=== PATIENT | male | born 1940 | race Caucasian/White ===

== ENCOUNTER 2020-08-11 13:44 | Inpatient (IN) | payer MEDICARE, BC ==
[~2020-08-11] VITALS: Ht 177.8 cm; Wt 68.0 kg
[2020-08-11] MEDS ORDERED: LORAZEPAM 2 MG/1 ML VIAL ONE (14:05)
[2020-08-11] MEDS ORDERED: LORAZEPAM 2 MG/1 ML VIAL IM ONE (14:15)
--- NOTE | 2020-08-11 14:18 | NUR ---
No informaion about current home medications found in transfer paperwork, pt unable to provide information.
--- NOTE | 2020-08-11 14:20 | NUR ---
PT IS IN ROOM #2B. DR GEORGE EVALUATED THE PT.
[2020-08-11 15:09] LABS: BASOPHILS # (AUTO) 0.1 K/uL (0.0-8.0); BASOPHILS % (AUTO) 1.2 % (0.0-2.0); EOSINOPHILS # (AUTO) 0.3 K/uL (0.0-0.7); EOSINOPHILS % (AUTO) 4.1 % (0.0-7.0); HEMATOCRIT 38.5 % (36.7-47.1); LYMPHOCYTES # (AUTO) 1.6 K/uL (20.0-40.0); LYMPHOCYTES % (AUTO) 24.7 % (20.5-51.5); MEAN CORPUSCULAR HGB CONC 34 g/dL (32.5-36.3); MEAN CORPUSCULAR VOLUME 94.9 fL (73.0-96.2); MONOCYTES # (AUTO) 0.8 K/uL (2.0-10.0); MONOCYTES % (AUTO) 13.1 % (0.0-11.0); NEUTROPHILS # (AUTO) 3.7 K/uL (1.8-8.9); NEUTROPHILS % (AUTO) 56.9 % (38.5-71.5); PLATELET COUNT (AUTO) 172 K/uL (152-348); RED BLOOD CELL COUNT(AUTO) 4.05 MIL/uL (4.06-5.63); WHITE BLOOD COUNT (AUTO) 6.4 K/uL (3.6-10.2)
[2020-08-11 15:16] LABS: CARBON DIOXIDE 24 mmol/L (21-32); CHLORIDE 109 mmol/L (98-107); CREATININE 1.6 mg/dL (0.6-1.3); GLUCOSE 95 mg/dL (74-106); POTASSIUM 4.2 mmol/L (3.5-5.1); UREA NITROGEN, BLOOD 32 mg/dL (7-18)
[2020-08-11 15:23] LABS: BILIRUBIN,DIRECT 0.2 mg/dL (0.0-0.2); BILIRUBIN,TOTAL 0.8 mg/dL (0.2-1.0)
[2020-08-11 15:24] LABS: ALANINE AMINOTRANSFERASE 29 U/L (16-63); ALKALINE PHOSPHATASE 83 U/L (50-136); ASPARTATE AMINOTRANSFERASE 40 U/L (15-37); TOTAL PROTEIN, SERUM 7.8 g/dL (6.4-8.2)
[2020-08-11] MEDS ORDERED: IV NS 1000 ML 1,000 ML IV ONE (15:45)
[2020-08-11 15:46] LABS: THYROID STIMULATING HORMONE 3.876 mIU/mL (0.358-3.740)
[2020-08-11] MEDS ORDERED: ACETAMINOPHEN 325 MG TABLET PO PRN (16:30)
[2020-08-11] MEDS ORDERED: Z GUARD REMEDY PASTE 57 GM TUBE TOP PRN (16:30)
[2020-08-11] MEDS ORDERED: ONDANSETRON 4 MG/2 ML VIAL IV PRN (16:30)
[2020-08-11] MEDS ORDERED: MAGNESIUM HYDROXIDE 30 ML LIQUID UDC PO PRN (16:30)
--- NOTE | 2020-08-11 18:11 | NUR ---
REPORT WAS GIVEN TO SENIOR CIVIL ENGINEER. PT WAS TRANSFERED TO ROOM #306.
--- NOTE | 2020-08-11 18:15 | NUR ---
received from ER per harshal asleep but moves all extremities and opens eyes slightly when transferred to bed, placed on 2l/nc 02, tele applied-SR/SB 54-61, sutures noted on forehead- clean and dry, bruises noted on both arms with a dsg on his left forearm, also bruises on lower extremities and a bruise on his left hip, safety measures initiated, bed alarm on, remains asleep, vs stable
[2020-08-11] MEDS: IV NS 1000 ML 1,000 ML IV SCH (18:16)
[2020-08-11 18:30] VITALS: BP 126/52
--- NOTE | 2020-08-11 19:05 | NUR ---
Patient sleeping comfortably with HOB elevated with continuos O2 at 2L/ min via NC saturating 100%. No s/s of respiratory distress. Sitter at bedside. IVF infusing on ADDY G# 20, patent/intact, no s/s of infiltration. Made warm and comfortable. Safety measure and fall prevention maintained. Admission process will continue.
[2020-08-11 20:00] VITALS: BP 149/75
--- NOTE | 2020-08-11 20:03 | NUR ---
Spoke to patient's , Sabine just now, she said that the patient has advance directives at home and willing to provide us copies anytime. She said that the patient is DNR. Daughter will bring/provide us copies in AM. Will endorse to Am nurse tomorrow,
[2020-08-12 00:13] VITALS: BP 145/66
--- NOTE | 2020-08-12 01:30 | NUR ---
Patient noted to have difficulty in swallowing. Patient was coughing when given apple sauce with crushed Tylenol . Placed patient to high Fowlers position to avoid aspiration. Will endorse to oncoming nurse.
[2020-08-12] MEDS: IV NS 1000 ML 1,000 ML IV SCH ×3 (02:44→22:05)
[2020-08-12 04:59] VITALS: BP 133/67
[2020-08-12 07:37] VITALS: BP 144/72
[2020-08-12 07:51] LABS: BASOPHILS # (AUTO) 0.1 K/uL (0.0-8.0); EOSINOPHILS # (AUTO) 0.3 K/uL (0.0-0.7); EOSINOPHILS % (AUTO) 3.8 % (0.0-7.0); HEMATOCRIT 35.9 % (36.7-47.1); LYMPHOCYTES # (AUTO) 1.8 K/uL (20.0-40.0); LYMPHOCYTES % (AUTO) 24.9 % (20.5-51.5); MEAN CORPUSCULAR HGB CONC 33 g/dL (32.5-36.3); MEAN CORPUSCULAR VOLUME 95.7 fL (73.0-96.2); MONOCYTES % (AUTO) 13.3 % (0.0-11.0); NEUTROPHILS # (AUTO) 4.2 K/uL (1.8-8.9); PLATELET COUNT (AUTO) 164 K/uL (152-348); RED BLOOD CELL COUNT(AUTO) 3.75 MIL/uL (4.06-5.63); WHITE BLOOD COUNT (AUTO) 7.4 K/uL (3.6-10.2)
[2020-08-12 08:25] LABS: CARBON DIOXIDE 17 mmol/L (21-32); CHLORIDE 113 mmol/L (98-107); CHOLESTEROL 165 mg/dL (<200); CREATININE 1.6 mg/dL (0.6-1.3); GLUCOSE 77 mg/dL (74-106); HDL CHOLESTEROL 53 mg/dL (40-60); MAGNESIUM 2.1 mg/dL (1.8-2.4); PHOSPHOROUS 3.1 mg/dL (2.5-4.9); POTASSIUM 4.4 mmol/L (3.5-5.1); TRIGLYCERIDES 78 MG/DL (30-150); UREA NITROGEN, BLOOD 32 mg/dL (7-18)
--- NOTE | 2020-08-12 09:45 | NUR ---
Pt received, confused, unable to verbally respond appropriately. No acute distress, no pain or SOB. Pt seen by MD, titration from 2L NC to 1.5L initiated O2 sat 96%. Breakfast held until wallow evaluation completed. PT evaluation determined max-total 2 person assist, from sit to standing. Pt's eyes remained closed the entire time, Pt unable to take single step forward. Right upper arm IV running NS 100ml/hr. 1:1 sitter present for being combative and aggressive at times. All needs attended to at this time. Will continue to monitor for safety.
[2020-08-12 11:45] VITALS: BP 139/67
[2020-08-12] MEDS: QUETIAPINE FUMARATE 25 MG TABLET PO PRN ×2 (13:17→20:22)
[2020-08-12 15:49] VITALS: BP 144/60
--- NOTE | 2020-08-12 19:00 | NUR ---
Pt received from AM nurse. No signs of distress or pain, no SOB. Patient is somewhat restless and mumbling to himself. Normal behavior according to AM nurse. Head to toe assessment completed, no abnormal findings relative to this patient. Will continue to monitor and assess.
--- NOTE | 2020-08-12 20:22 | NUR ---
Pt was feeling agitated. PRN Seroquel was administered. Will assess response and monitor.
--- NOTE | 2020-08-12 20:52 | NUR ---
Pt is asleep and calm. VSS. Seroquel has had a positive affect. No changes in VS or with HR. Will continue to monitor.
--- NOTE | 2020-08-13 00:25 | NUR ---
Assessed patient, resting in bed. VSS, no distress, afebrile, no reports of pain, no distress. Call light within reach, bed at lowest position, assessed IV site/checked IV pump. Will continue to monitor and assess.
--- NOTE | 2020-08-13 02:09 | NUR ---
No distress, no pain, VSS, afebrile, O2 @ 2L via Nasal Canula, call light within reach, bed at lowest position, sitter at bedside. Will continue to monitor and assess.
--- NOTE | 2020-08-13 05:11 | NUR ---
Upon assessment patient is sleeping comfortably, as he has been through the entire night. Agitation in the early parts of my shift were treated with PRN Seroquel and had positive effects on patient. No pain, VSS, afebrile, call light within reach, bed at lowest position, no distress, sitter at bedside. Will endorse to oncoming AM nurse.
[2020-08-13] MEDS: QUETIAPINE FUMARATE 25 MG TABLET PO PRN ×4 (05:15→17:52)
[2020-08-13 07:12] LABS: BASOPHILS % (AUTO) 0.6 % (0.0-2.0); EOSINOPHILS # (AUTO) 0.4 K/uL (0.0-0.7); EOSINOPHILS % (AUTO) 6.1 % (0.0-7.0); HEMATOCRIT 34.7 % (36.7-47.1); HEMOGLOBIN 11.8 g/dL (12.5-16.3); LYMPHOCYTES # (AUTO) 1.5 K/uL (20.0-40.0); LYMPHOCYTES % (AUTO) 22.6 % (20.5-51.5); MEAN CORPUSCULAR HEMOGLOBIN 32.2 uug (23.8-33.4); MEAN CORPUSCULAR HGB CONC 34 g/dL (32.5-36.3); MEAN CORPUSCULAR VOLUME 94.7 fL (73.0-96.2); MONOCYTES # (AUTO) 0.9 K/uL (2.0-10.0); NEUTROPHILS # (AUTO) 3.9 K/uL (1.8-8.9); NEUTROPHILS % (AUTO) 57.7 % (38.5-71.5); PLATELET COUNT (AUTO) 148 K/uL (152-348); RED BLOOD CELL COUNT(AUTO) 3.66 MIL/uL (4.06-5.63); WHITE BLOOD COUNT (AUTO) 6.7 K/uL (3.6-10.2)
[2020-08-13 07:17] LABS: CARBON DIOXIDE 21 mmol/L (21-32); CHLORIDE 112 mmol/L (98-107); CREATININE 1.4 mg/dL (0.6-1.3); GLUCOSE 92 mg/dL (74-106); UREA NITROGEN, BLOOD 20 mg/dL (7-18)
--- NOTE | 2020-08-13 07:30 | NUR ---
Received patient in bed resting in bed with 1:1 sitter for safety. On Oxygen at 1.5L via nasal canula, sat 94%. No signs of Pain or discomfort noted. IVF infusing on ADDY. kept clean and comfortable. Will continue to monitor.
[2020-08-13] MEDS: IV NS 1000 ML 1,000 ML IV SCH ×2 (08:10→18:30)
[2020-08-13] MEDS: ENOXAPARIN SODIUM 30 MG/0.3 ML DISP.SYRIN SUBCUT SCH (09:32)
[2020-08-13 16:00] VITALS: BP 130/61
[2020-08-13 16:19] LABS: *BILIRUBIN,URIN NEGATIVE (NEGATIVE); *BLOOD, URINE 3+ (NEGATIVE); *CLARITY,URINE SLIGHTLY CLOUDY (CLEAR); *COLOR,URINE YELLOW (YELLOW); *KETONES,URINE 1+ (NEGATIVE); LEUKOCYTE ESTERASE ,URINE NEGATIVE (NEGATIVE); NITRITE, URINE NEGATIVE (NEGATIVE); PH,URINE 5.5 (5.0-8.0); UGLUCOSE NEGATIVE (NEGATIVE)
[2020-08-13 16:25] LABS: *CREATININE,URINE 68.8 mg/dL (30-125); *URINE TOTAL PROTEIN RANDOM 26.6 mg/dL (<150/24HR)
[2020-08-13 18:38] LABS: BACTERIA,URINE FEW /HPF (NONE SEEN); RBC,URINE 50-80 /HPF (0-3); SQUAMOUS EPITHELIAL CELL,UR FEW /HPF (NONE SEEN); WBC,URINE 0-3 /HPF (0-3)
--- NOTE | 2020-08-13 19:45 | NUR ---
PATIENT AWAKE BUT WITH CONFUSION, NO SOB NO CHEST PAIN, TELE MONITOR SINUS RHYTHM. PATIENT HAS EPISODE OF AGITATION, COMBATIVE WHEN GIVING ADL'S, REDIRECT PATIENT BUT NOT EFFECTIVE, CONT TO REDIRECT AND HANDLE SKIN GENTLY, KEPT CLEAN DRY AND COMFORTABLE, CONT ON 1;1 SITTER FOR RISK FOR FALL, TRIES TO CLIMB OUT OF BED. CONT TO MONITOR.
[2020-08-13 20:00] VITALS: BP 158/88
[2020-08-13] MEDS: HYDROCODONE/APAP 5-325MG TABLET PO PRN (21:24)
--- NOTE | 2020-08-13 22:00 | NUR ---
PATIENT AWAKE WITH CONFUSION, COMBATIVE DURING ADL'S, AND RESTLESS, GIVEN PAIN MEDICATION FOR ANTICIPATED PAIN, KEPT CLEAN AND DRY. CONT TO MONITOR.
[2020-08-14 00:24] VITALS: BP 136/75
[2020-08-14] MEDS: QUETIAPINE FUMARATE 25 MG TABLET PO PRN ×3 (01:20→15:54)
[2020-08-14 04:30] VITALS: BP 144/72
[2020-08-14] MEDS: IV NS 1000 ML 1,000 ML IV SCH ×2 (04:30→14:26)
--- NOTE | 2020-08-14 06:22 | NUR ---
PATIENT ASLEEP BUT AROUSABLE, NO S/S OF SOB NO S/S OF CHEST PAIN, TELE MONITOR SINUS RHYTHM, SINUS ALLYSON, SLEPT FOR 5 HRS, TX DONE ON BILATERAL ARMS. PATIENT VOIDING WITH PALE COLOR RED NOTED IN MINIMAL AMOUNT, PATIENT HAS NO S/S OF PAIN AT THIS TIME. CONT TO MONITOR.
[2020-08-14 07:23] LABS: BASOPHILS % (AUTO) 0.6 % (0.0-2.0); EOSINOPHILS # (AUTO) 0.6 K/uL (0.0-0.7); EOSINOPHILS % (AUTO) 8.6 % (0.0-7.0); HEMATOCRIT 33.1 % (36.7-47.1); HEMOGLOBIN 11.1 g/dL (12.5-16.3); LYMPHOCYTES # (AUTO) 1.5 K/uL (20.0-40.0); MEAN CORPUSCULAR HEMOGLOBIN 31.8 uug (23.8-33.4); MEAN CORPUSCULAR HGB CONC 34 g/dL (32.5-36.3); MEAN CORPUSCULAR VOLUME 94.8 fL (73.0-96.2); MONOCYTES # (AUTO) 0.8 K/uL (2.0-10.0); MONOCYTES % (AUTO) 12.7 % (0.0-11.0); NEUTROPHILS # (AUTO) 3.7 K/uL (1.8-8.9); NEUTROPHILS % (AUTO) 55.1 % (38.5-71.5); PLATELET COUNT (AUTO) 146 K/uL (152-348); RED BLOOD CELL COUNT(AUTO) 3.49 MIL/uL (4.06-5.63); WHITE BLOOD COUNT (AUTO) 6.7 K/uL (3.6-10.2)
[2020-08-14 07:26] LABS: BILIRUBIN,TOTAL 0.5 mg/dL (0.2-1.0); CREATININE 1.2 mg/dL (0.6-1.3); MAGNESIUM 1.4 mg/dL (1.8-2.4); PHOSPHOROUS 2.5 mg/dL (2.5-4.9); POTASSIUM 3.8 mmol/L (3.5-5.1); TOTAL PROTEIN, SERUM 5.9 g/dL (6.4-8.2)
--- NOTE | 2020-08-14 08:30 | NUR ---
RECEIVED PATIENT ASLEEP IN BED, EASILY AROUSABLE. ORIENTED X 1, CONFUSED AND UNABLE TO FOLLOW COMMAND. SR ON MONITOR. ON 2L O2, SATURATION WNL. IV ON RIGHT UPPER ARM 22G, FLUSHED AND PATENT. INCONTINENT OF B/B. TOTAL ASSIST WITH ADLS. SAFETY PRECAUTIONS IN PLACE. 1:1 SITTER AT BEDSIDE FOR SAFETY. WILL CONTINUE TO MONITOR.
[2020-08-14] MEDS: ENOXAPARIN SODIUM 30 MG/0.3 ML DISP.SYRIN SUBCUT SCH (09:04)
[2020-08-14] MEDS: MAGNESIUM SULFATE/D5W 100 ML IV SCH ×4 (09:21→14:06)
[2020-08-14 11:20] VITALS: BP 92/45
--- NOTE | 2020-08-14 12:20 | NUR ---
spoke to Dr Duran and informed of Dr Canchola plan for crisis team consult- okayed and crisis team called and spoke to Renata- will come to see pt today
[2020-08-14 12:30] VITALS: BP 122/62
--- NOTE | 2020-08-14 17:20 | NUR ---
SEEN BY CHANDAN FROM CRISIS TEAM. PLACED PATIENT ON HOLD 5150. CALLED DR. BAUGH FOR CLARIFICATION IF PATIENT IS MEDICALLY CLEARED TO BE D/C FROM [facility]. DR BAUGH CLEARED PATIENT TO BE D/C TO [facility]. LEFT MESSAGE TO CLARIFY HOME MEDICATION WITH ERIC, .
--- NOTE | 2020-08-14 18:52 | NUR ---
PATIENT DISCHARGED FROM [facility] TO [facility]. CONFUSED AND COMBATIVE. UNABLE TO REDIRECT. 1:1 SITTER AT BEDSIDE FOR SAFETY. BILATERAL MITTENS IN PLACE. IV ON RIGHT FA 22G - HEPLOCK. NO CALL BACK FROM ERIC, . WILL ENDORSE HOME MEDICATION INQUIRY TO CYLINDER CHECKER. DISCHARGE PHOTOS TAKEN AND IN CHART. PATIENT REFUSED FLU AND PNEUMONIA VACCINE.
[2020-08-14] MEDS ORDERED: QUET25TA PO (18:53)
== END 2020-08-14 19:03 | DRG 682 ==
LOC: ER 13:44 → TELE3 17:02 → MEDSURG3 08-14 08:30
PROVIDERS: ADMIT Family Medicine; ATTEND Family Medicine
DX: N17.0 Acute kidney failure with tubular necrosis (principal); G92 Toxic encephalopathy; R40.2213 Coma scale, best verbal response, none, at hospital admission; I50.22 Chronic systolic (congestive) heart failure; F03.91 Unspecified dementia, unspecified severity, with behavioral disturbance; E03.9 Hypothyroidism, unspecified; E83.42 Hypomagnesemia; R74.01 Elevation of levels of liver transaminase levels; F29 Unspecified psychosis not due to a substance or known physiological condition; N18.9 Chronic kidney disease, unspecified; S09.90XA Unspecified injury of head, initial encounter; Y93.9 Activity, unspecified; W01.0XXA Fall on same level from slipping, tripping and stumbling without subsequent striking against object, initial encounter; Y92.009 Unspecified place in unspecified non-institutional (private) residence as the place of occurrence of the external cause; S40.022A Contusion of left upper arm, initial encounter; S40.021A Contusion of right upper arm, initial encounter; Z73.6 Limitation of activities due to disability; R40.2353 Coma scale, best motor response, localizes pain, at hospital admission; R40.2143 Coma scale, eyes open, spontaneous, at hospital admission
CPT/HCPCS: 36415; 70030-TC; 71045; 83735; 84100; 84156; 84300; 84443; 85025; 87086; 93005; 93307; A4663; C1758; G0378; J1650; J2060; J3475; J7030

== ENCOUNTER 2020-08-14 19:12 | Inpatient (IN) | payer MEDICARE, BC ==
[~2020-08-14] VITALS: Ht 177.8 cm; Wt 68.0 kg
[~2020-08-14 19:12] MED LIST: QUET25TA PO
--- NOTE | 2020-08-14 19:55 | NUR ---
Admitted patient from [facility] to [facility].Patient on 5150 with dx of psychosis. Patient is awake,confused ,uncooperative and combative. Trying to get out from the bed and noted with episodes of striking out .Bilateral mittens in place.Continue 1:1 sitter at bedside for safety. Patient noted with multiple skin issues.IV on right FA 22G heplock ,patent and intact.No s/s of infiltration.Received call from Patient's Sabine.Per ,patient doesn't have home medications. Will continue to monitor.
[2020-08-14] MEDS ORDERED: MAG HYDROX/AL HYDROX/SIMETH 30 ML LIQUID UDC PO PRN (20:00)
[2020-08-14] MEDS ORDERED: ZOLPIDEM 5 MG TABLET PO PRN (20:00)
[2020-08-14] MEDS ORDERED: ACETAMINOPHEN 325 MG TABLET PO PRN (20:00)
[2020-08-14] MEDS ORDERED: MAGNESIUM HYDROXIDE 30 ML LIQUID UDC PO PRN (20:00)
[2020-08-14 20:30] VITALS: BP 148/54
[2020-08-14] MEDS: LORAZEPAM 0.5 MG TABLET PO PRN (20:56)
--- NOTE | 2020-08-15 06:26 | NUR ---
Patient slept about 6 hrs.Combative during patient's care.Incontinent to both B &B .No BM at this time.Off mittens.All needs anticipated and met .
[2020-08-15 07:10] LABS: BILIRUBIN,TOTAL 0.5 mg/dL (0.2-1.0); CREATININE 1.2 mg/dL (0.6-1.3); POTASSIUM 4.6 mmol/L (3.5-5.1); TOTAL PROTEIN, SERUM 6.7 g/dL (6.4-8.2)
--- NOTE | 2020-08-15 08:00 | NUR ---
RECEIVED PATIENT AWAKE AND CONFUSED. NOTED SKIN TEARS AND BRUISES ON B/L UPPER EXTREMITIES. PHOTOS TAKEN AND IN CHART. 1:1 SITTER AT BEDSIDE FOR SAFETY. INCONTINENT OF B/B. ALL NEEDS MET AT THIS TIME. NO S/S OF SOB NOTED. WILL CONTINUE TO MONITOR.
[2020-08-15] MEDS: LORAZEPAM 0.5 MG TABLET PO PRN ×2 (08:29→14:48)
[2020-08-15] MEDS: OLANZAPINE 2.5 MG TABLET PO SCH ×2 (10:09→21:00)
[2020-08-15 11:00] VITALS: BP 167/58
--- NOTE | 2020-08-15 11:07 | NUR ---
FAMILY CONTACT: SW contacted pts Sabine ([phone]) for collateral information, treatment and discharge planning. Per , she states pt has been diagnosed with Dementia and states his behavior has gotten progressively worse. states pt has become very paranoid of others and often wanders at night and does not sleep. states that pt talks to himself and sees people that aren't there. Per , she states that pts behavior has gotten worse in the last 4 months due to construction work she is having around her house she states that the disturbance in pts routine and the different workers coming in and out of their home has affected pt. She states that pt became paranoid and fearful and believed the workers were going to hurt him and that is when pt walked out of the home and thus, prompting to call 911 and pt being placed on a 5150 hold. states that she is unable to care for pt at home anymore and states that she is looking into [facility] for placement. states that she is also open to SNF placement short-term if she is unable to figure out her finances by the time of pts discharge.
--- NOTE | 2020-08-15 11:29 | NUR ---
SUDHAKAR INITIAL DISCHARGE PLAN: Per Sabine ([phone]) she wishes for pt to be placed at [facility]. However, is open to SNF placement if she is unable to manage her finances. SUDHAKAR will help form a safe and proper discharge in collaboration with .
--- NOTE | 2020-08-15 12:21 | NUR ---
FIREARMS REPORT: Rake Operator completed and submitted a [employer] firearms report for 5150 grave disability certification. A copy of report has been placed in patient chart.
--- NOTE | 2020-08-15 15:00 | NUR ---
SUDHAKAR INDIVIDUAL INTERVENTION: SW assessed pts ability to participate in group therapy. Pt is unable to anticipate due to Dementia. Pt does not respond to verbal cues and is confused, disorganized, and disoriented.
--- NOTE | 2020-08-15 16:10 | NUR ---
MESSAGED DR. SOL TO LET HIM KNOW THAT PATIENT IS COMBATIVE AND RESTLESS. CLIMBING OUT OF BED. ORDERED ZYPREXA 5MG IM TO BE GIVEN NOW.
[2020-08-15] MEDS ORDERED: OLANZAPINE 10 MG VIAL IM ONE (16:15)
--- NOTE | 2020-08-15 17:21 | NUR ---
NOTIFIED SUSHMA FLORES THAT PATIENT bp 170/92, 166/98 WITH hr 65. PRN ORDERS FOR CLONIDINE 0.1MG TO BE GIVEN.
[2020-08-15] MEDS ORDERED: CLONIDINE HCL 0.1 MG TABLET PO PRN (17:30)
[2020-08-15 20:08] VITALS: BP 147/57
--- NOTE | 2020-08-15 21:00 | NUR ---
Patient in bed, alert to self. Does not have s/s of respiratory distress or pain. Sitter is at bedside. Bed is locked and in lowest position. Medications were crushed and tolerated well with pudding. Will continue to monitor.
[2020-08-15] MEDS: TRAZODONE 50 MG TABLET PO PRN (23:44)
--- NOTE | 2020-08-15 23:44 | NUR ---
Patient appeared restless. Was given Trazodone at 2344 to help aide in sleep. Patient tolerated medication well. Will continue to monitor.
[2020-08-16 04:00] VITALS: BP 151/61
--- NOTE | 2020-08-16 06:02 | NUR ---
Patient slept intermittently throughout the night. No s/s of respiratory distress, chest pain or any discomform at this time. Patient is on RA. Has a 1:1 at bedside. Patient is combative and swinging arms during diaper change. Bed is locked with alarm on and in the lowest position. Will endorse to day shift.
--- NOTE | 2020-08-16 06:16 | NUR ---
Patient slept 5 hours and 30 minutes throughout the night.
--- NOTE | 2020-08-16 07:30 | NUR ---
Received patient resting bed. Patient shows no sign of distress at this time. He is with 1:1 sitter. Patient is hostile and combative. Safety precautions are in place with bed in the lowest position, locked with alarm activated.
[2020-08-16] MEDS: OLANZAPINE 2.5 MG TABLET PO SCH ×3 (08:48→17:14)
[2020-08-16] MEDS: LORAZEPAM 0.5 MG TABLET PO PRN (09:12)
[2020-08-16 10:54] VITALS: BP 127/67
--- NOTE | 2020-08-16 13:32 | NUR ---
SUDHAKAR FAMILY CONTACT: SW received a call from pts Sabine ([phone]) requesting information on pts psychiatric hold and behavior. SW informed her that pt remains aggressive and combative when receiving care and also informed her that pt received a Zyprexa IM yesterday in the afternoon due to pts aggressive behavior. SW also informed that pt will be placed on a 14 day hold. understood and agrees with treatment plan.
[2020-08-16] MEDS: LORAZEPAM 1 MG TABLET PO PRN (14:33)
--- NOTE | 2020-08-16 15:23 | NUR ---
INDIVIDUAL INTERVENTION: SW attempted to meet with pt and assess his ability to participate in group therapy. Pt is confused, disorganized, and disoriented and unable to engage in conversation.
[2020-08-16] MEDS: BOOST PLUS 237 ML LIQUID (RICH CHOCOLATE) PO SCH (17:13)
--- NOTE | 2020-08-16 18:27 | NUR ---
Patient is resting in bed. Patient has a 1:1 sitter. All medications given as ordered. Wounds are cleaned and dressed on bilateral forearm. Safety precautions in place with bed in the lowest position and locked with alarm activated. Will endorse to the oncoming nurse.
[2020-08-16 19:30] VITALS: BP 107/70
--- NOTE | 2020-08-16 23:00 | NUR ---
patient transferred to MHU. report and warm hand off given to AILEEN Virk. patient confused and unable to verbalize needs. 1:1 sitter for legal hold. safety precautions provided. resting comfortably. endorsed to MHU RN to remove PIV. care rendered.
--- NOTE | 2020-08-17 00:49 | NUR ---
GPS: Asleep upon rounds. Fall precautions observed. Bed alarm on for safety. In no acute distress noted.
[2020-08-17] MEDS ORDERED: GUAIFENESIN/DEXTROMETHORPHAN 5 ML UDC PO PRN (01:45)
[2020-08-17] MEDS ORDERED: ALBUTEROL SULFATE 2.5 MG/ 0.5 ML NEBU NEB PRN (02:00)
--- NOTE | 2020-08-17 02:00 | NUR ---
GPS: Noted pt. with moist cough. HOB elevated. O2 sat 95% R/A. Afebrile. GARNETTER Pelon made aware with orders,carried -out. Aspiration precautions continues. Will monitor closely.
[2020-08-17] MEDS ORDERED: ALBUTEROL SULFATE 2.5 MG/ 0.5 ML NEBU ONE (02:39)
--- NOTE | 2020-08-17 06:53 | NUR ---
GPS NOTE: PATIENT WAS TRANSFERRED TO ROOM 306 OVERFLOWED [facility] 3RD FLOOR WITH ALL HIS BELONGINGS IN STABLE CONDITION. WILL CONTINUE Q15 MIN CHECKS
[2020-08-17 06:56] LABS: BASOPHILS % (AUTO) 0.3 % (0.0-2.0); EOSINOPHILS # (AUTO) 0.2 K/uL (0.0-0.7); EOSINOPHILS % (AUTO) 1.9 % (0.0-7.0); HEMOGLOBIN 12.5 g/dL (12.5-16.3); LYMPHOCYTES # (AUTO) 1.2 K/uL (20.0-40.0); MEAN CORPUSCULAR HEMOGLOBIN 32.4 uug (23.8-33.4); MEAN CORPUSCULAR HGB CONC 35 g/dL (32.5-36.3); MEAN CORPUSCULAR VOLUME 93.9 fL (73.0-96.2); MONOCYTES # (AUTO) 0.9 K/uL (2.0-10.0); MONOCYTES % (AUTO) 11.8 % (0.0-11.0); NEUTROPHILS # (AUTO) 5.7 K/uL (1.8-8.9); PLATELET COUNT (AUTO) 159 K/uL (152-348); RED BLOOD CELL COUNT(AUTO) 3.84 MIL/uL (4.06-5.63)
--- NOTE | 2020-08-17 07:01 | NUR ---
patient received from MHU. will endorse to morning nurse accordingly.
[2020-08-17] MEDS: OLANZAPINE 2.5 MG TABLET PO SCH ×3 (08:35→16:07)
[2020-08-17] MEDS: BOOST PLUS 237 ML LIQUID (RICH CHOCOLATE) PO SCH ×2 (08:36→16:08)
[2020-08-17] MEDS: LORAZEPAM 1 MG TABLET PO PRN ×2 (08:36→14:42)
[2020-08-17 12:00] VITALS: BP 100/50
--- NOTE | 2020-08-17 13:41 | NUR ---
patient is calm, comfortable, in bed, taking nap, no distress noted, no behavior noted at this time,however still noted with hitting the staff during care. kept comfortable, turned repositioned every 2 hours to relieve pressure, kept clean. continue with same plan of care.
--- NOTE | 2020-08-17 14:17 | NUR ---
INDIVIDUAL INTERVENTION: SW attempted to meet with pt and assess his ability to participate in group therapy. Pt is confused, disorganized, and disoriented and unable to engage in conversation due to Dementia.
--- NOTE | 2020-08-17 14:38 | NUR ---
patient noted with body temp 100.9, and dry cough, LIME MIXER Tanvi made aware, with order to do CXR, order noted.
--- NOTE | 2020-08-17 15:09 | NUR ---
patient noted with difficulty swallowing, spitting out the food, not able to swallow or follow the commands. ST eval in place, continue to monitor
[2020-08-17 16:00] VITALS: BP 108/50
[2020-08-17] MEDS: TRAZODONE 50 MG TABLET PO PRN (22:28)
--- NOTE | 2020-08-18 00:12 | NUR ---
Patient noted with temp of 102 axillary and 104 rectally.Fluctuating O2 sat from 88-89 on RA.Placed O2 @ 4LPM via NC.HOB remained elevated.Cooling measures provided. Patient noted with episodes of hitting during Care.BM x1.Changed and repositioned patient.call center representative Dr Bird made aware with new order given noted and carried out.
[2020-08-18] MEDS ORDERED: ACETAMINOPHEN 650 MG SUPP.RECT RC PRN (00:30)
[2020-08-18 01:07] VITALS: BP 114/69
[2020-08-18 02:13] LABS: BASOPHILS % (AUTO) 0.5 % (0.0-2.0); HEMATOCRIT 40.1 % (36.7-47.1); HEMOGLOBIN 13.7 g/dL (12.5-16.3); LYMPHOCYTES # (AUTO) 0.5 K/uL (20.0-40.0); LYMPHOCYTES % (AUTO) 9.9 % (20.5-51.5); MEAN CORPUSCULAR HEMOGLOBIN 32.3 uug (23.8-33.4); MEAN CORPUSCULAR HGB CONC 34 g/dL (32.5-36.3); MEAN CORPUSCULAR VOLUME 94.5 fL (73.0-96.2); MONOCYTES # (AUTO) 0.4 K/uL (2.0-10.0); NEUTROPHILS # (AUTO) 4.5 K/uL (1.8-8.9); NEUTROPHILS % (AUTO) 82.6 % (38.5-71.5); PLATELET COUNT (AUTO) 142 K/uL (152-348); RED BLOOD CELL COUNT(AUTO) 4.24 MIL/uL (4.06-5.63); WHITE BLOOD COUNT (AUTO) 5.4 K/uL (3.6-10.2)
[2020-08-18 02:15] LABS: CARBON DIOXIDE 27 mmol/L (21-32); CHLORIDE 108 mmol/L (98-107); CREATININE 2.4 mg/dL (0.6-1.3); GLUCOSE 131 mg/dL (74-106); UREA NITROGEN, BLOOD 45 mg/dL (7-18)
[2020-08-18] MEDS ORDERED: GUAI237L83 PO (03:24)
[2020-08-18] MEDS ORDERED: OLAN2.5T3 PO (03:24)
[2020-08-18] MEDS ORDERED: ACET650S24 RC (03:24)
[2020-08-18] MEDS ORDERED: CLON0.1T14 PO (03:24)
[2020-08-18] MEDS ORDERED: LORA-259 PO (03:24)
[2020-08-18] MEDS ORDERED: ALBU2.5V7 IH (03:24)
[2020-08-18] MEDS ORDERED: MAGN400O6 PO (03:24)
[2020-08-18] MEDS ORDERED: [UNRECOGNIZED DRUG - CODE] PO (03:24)
[2020-08-18] MEDS ORDERED: TRAZ-182 PO (03:24)
[2020-08-18] MEDS ORDERED: ACET-2154 PO (03:24)
[2020-08-18] MEDS ORDERED: LACT-15 PO (03:24)
[2020-08-18] MEDS ORDERED: MAG-55 PO (03:24)
[2020-08-18 04:37] LABS: BILIRUBIN,DIRECT 0.1 mg/dL (0.0-0.2); BILIRUBIN,TOTAL 0.3 mg/dL (0.2-1.0)
[2020-08-18] MEDS ORDERED: CALCIUM CARB/VITAMIN D 250MG-125UNITS TABLET PO SCH (09:00)
[2020-08-21] MEDS ORDERED: CIPR500T5 PO (14:58)
[2020-08-21] MEDS ORDERED: TAMS-3 PO (14:58)
[2020-08-21] MEDS ORDERED: CALC-555 PO (14:58)
[2020-08-21] MEDS ORDERED: TRAZ-252 PO (14:58)
[2020-08-21] MEDS ORDERED: OLAN5TAB6 PO (14:58)
== END 2020-08-18 02:35 | disposition short-term general hospital (02) | DRG 885 ==
LOC: GPSOV3 19:12 → GPS 08-16 23:08 → GPSOV3 08-17 06:50
PROVIDERS: ADMIT Psychiatry & Neurology Psychiatry; ATTEND Registered Nurse
DX: F29 Unspecified psychosis not due to a substance or known physiological condition (principal); N17.9 Acute kidney failure, unspecified; N18.9 Chronic kidney disease, unspecified; G92 Toxic encephalopathy; F03.91 Unspecified dementia, unspecified severity, with behavioral disturbance; I50.22 Chronic systolic (congestive) heart failure; R74.01 Elevation of levels of liver transaminase levels; S09.90XD Unspecified injury of head, subsequent encounter; X58.XXXD Exposure to other specified factors, subsequent encounter; R94.6 Abnormal results of thyroid function studies
CPT/HCPCS: 36415; 71045; 83605; 85025; 87040; 94664; J2358; U0003

== ENCOUNTER 2020-08-18 02:50 | Inpatient (IN) | payer MEDICARE, BC ==
[~2020-08-18] VITALS: Ht 177.8 cm; Wt 46.7 kg
[2020-08-18] MEDS ORDERED: GUAI237L83 PO (03:24)
[2020-08-18] MEDS ORDERED: [UNRECOGNIZED DRUG - CODE] PO (03:24)
[2020-08-18] MEDS ORDERED: CLON0.1T14 PO (03:24)
[2020-08-18] MEDS ORDERED: ALBU2.5V7 IH (03:24)
[2020-08-18] MEDS ORDERED: OLAN2.5T3 PO (03:24)
[2020-08-18] MEDS ORDERED: MAGN400O6 PO (03:24)
[2020-08-18] MEDS ORDERED: LACT-15 PO (03:24)
[2020-08-18] MEDS ORDERED: ACET650S24 RC (03:24)
[2020-08-18] MEDS ORDERED: LORA-259 PO (03:24)
[2020-08-18] MEDS ORDERED: ACET-2154 PO (03:24)
[2020-08-18] MEDS ORDERED: TRAZ-182 PO (03:24)
[2020-08-18] MEDS ORDERED: MAG-55 PO (03:24)
[2020-08-18] MEDS ORDERED: IV NORMAL SALINE 500 ML IV ONE (03:30)
[2020-08-18] MEDS ORDERED: ACETAMINOPHEN 650 MG SUPP.RECT RC PRN ×2 (03:45→10:30)
--- NOTE | 2020-08-18 05:31 | NUR ---
Admitted patient to med-surg unit.Remained confused.Responsive to tactile stimuli.Inserted Iv on left hand 20 g with good blood return.Relayed stat labs result to bail bondsman MD Garcia with ordered given noted and carried out. Obtained covid test .Bolus 500 ml x1 given as ordered .Tolerated well.1:1 at bedside for safety.Will continue to monitor.
[2020-08-18] MEDS: IV NS 1000 ML 1,000 ML IV PRN ×2 (06:23→17:03)
--- NOTE | 2020-08-18 06:36 | NUR ---
Patient moved to room 318 .Urine collected noted with dark light red colored output and sent to lab.Voided x2.IV fluid Ns 0.9 % running well at 75 cc/hr.Will endorse to oncoming shift.
[2020-08-18 08:27] VITALS: BP 112/44
--- NOTE | 2020-08-18 09:13 | NUR ---
SUDHAKAR SNF REFERRAL NOTE: SUDHAKAR faxed SNF referral to [facility] ([facility]) [address] [facility] [address] P:[phone] for review.
[2020-08-18] MEDS ORDERED: TRAZODONE 50 MG TABLET PO PRN (10:30)
[2020-08-18] MEDS ORDERED: ACETAMINOPHEN 325 MG TABLET PO PRN (10:30)
[2020-08-18] MEDS ORDERED: ALBUTEROL SULFATE 2.5 MG/3 ML NEBU NEB PRN (10:30)
[2020-08-18] MEDS ORDERED: MAGNESIUM HYDROXIDE 30 ML LIQUID UDC PO PRN (10:30)
[2020-08-18] MEDS ORDERED: MAG HYDROX/AL HYDROX/SIMETH 30 ML LIQUID UDC PO PRN (10:30)
[2020-08-18] MEDS ORDERED: Medication Not On Formulary EA (Mag Hydrox/Al Hydrox/Simeth (Maalox Max Strength Susp) 3 PO PRN (10:30)
[2020-08-18] MEDS ORDERED: GUAIFENESIN/DEXTROMETHORPHAN 5 ML UDC PO PRN (10:30)
[2020-08-18] MEDS ORDERED: CLONIDINE HCL 0.1 MG TABLET PO PRN (10:30)
[2020-08-18] MEDS ORDERED: ENOXAPARIN SODIUM 30 MG/0.3 ML DISP.SYRIN SUBCUT SCH (10:45)
[2020-08-18] MEDS ORDERED: AZITHROMYCIN IV 500 MG in IV DEXTROSE 5% 250 ML IV SCH (12:30)
[2020-08-18] MEDS ORDERED: OLANZAPINE 2.5 MG TABLET PO SCH (13:00)
--- NOTE | 2020-08-18 13:20 | NUR ---
SUDHAKAR SNF CONTACT: SUDHAKAR received a call from Sybil information coordinator at [facility] ([facility]) [address] [facility] [address] P:[phone] stating pt has been accepted to the facility.
[2020-08-18 14:00] LABS: BASOPHILS % (AUTO) 0.5 % (0.0-2.0); HEMATOCRIT 34.4 % (36.7-47.1); HEMOGLOBIN 11.6 g/dL (12.5-16.3); LYMPHOCYTES # (AUTO) 0.6 K/uL (20.0-40.0); LYMPHOCYTES % (AUTO) 9.9 % (20.5-51.5); MEAN CORPUSCULAR HGB CONC 34 g/dL (32.5-36.3); MEAN CORPUSCULAR VOLUME 94.6 fL (73.0-96.2); MONOCYTES # (AUTO) 0.3 K/uL (2.0-10.0); MONOCYTES % (AUTO) 5.9 % (0.0-11.0); NEUTROPHILS # (AUTO) 4.8 K/uL (1.8-8.9); NEUTROPHILS % (AUTO) 83.7 % (38.5-71.5); PLATELET COUNT (AUTO) 128 K/uL (152-348); RED BLOOD CELL COUNT(AUTO) 3.63 MIL/uL (4.06-5.63); WHITE BLOOD COUNT (AUTO) 5.8 K/uL (3.6-10.2)
[2020-08-18 15:13] VITALS: BP 144/61
--- NOTE | 2020-08-18 16:54 | NUR ---
Pt AAOx0. Pt lethargic; awakens and becomes agitated during care. Failed bedside swallow eval, FORM TAMPER notified. NPO and ST eval ordered. Afebrile. On 2L spo2 >96%; no cough/labored breathing. Bedbound, pt turned q2h, no new skin issues. Incontinent x2. Plan: IVF, IV abx, o2 therapy, AM labs
[2020-08-18] MEDS: BOOST PLUS 237 ML LIQUID (VERY VANILLA) PO SCH (17:00)
[2020-08-18] MEDS: CEFTRIAXONE 1 G in IV DEXTROSE 5% 50 ML IV SCH (18:52)
[2020-08-18 19:30] VITALS: BP 145/78
--- NOTE | 2020-08-18 19:30 | NUR ---
patient received in bed with 1:1 sitter at bedside. resting comfortably. no s/s of acute distress noted. v/s stable. will continue to monitor.
[2020-08-19] VITALS: BP 120/49
--- NOTE | 2020-08-19 00:50 | NUR ---
patient has fever of 100.1 tylenol suppository administered. will f/u
--- NOTE | 2020-08-19 01:50 | NUR ---
patient afebrile now. temperature at 98.3
[2020-08-19 04:00] VITALS: BP 133/61
[2020-08-19] MEDS: IV NS 1000 ML 1,000 ML IV PRN ×2 (05:45→20:04)
--- NOTE | 2020-08-19 05:46 | NUR ---
patient resting comfortably. 1:1 sitter at bedside. afebrile. v/s stable. NPO status remained. will continue to monitor.
[2020-08-19 06:13] LABS: BASOPHILS % (AUTO) 0.8 % (0.0-2.0); EOSINOPHILS % (AUTO) 0.2 % (0.0-7.0); HEMATOCRIT 34.9 % (36.7-47.1); HEMOGLOBIN 11.8 g/dL (12.5-16.3); LYMPHOCYTES # (AUTO) 1.2 K/uL (20.0-40.0); MEAN CORPUSCULAR HGB CONC 34 g/dL (32.5-36.3); MEAN CORPUSCULAR VOLUME 94.2 fL (73.0-96.2); MONOCYTES # (AUTO) 0.5 K/uL (2.0-10.0); MONOCYTES % (AUTO) 8.3 % (0.0-11.0); NEUTROPHILS # (AUTO) 3.8 K/uL (1.8-8.9); NEUTROPHILS % (AUTO) 69.7 % (38.5-71.5); PLATELET COUNT (AUTO) 128 K/uL (152-348); WHITE BLOOD COUNT (AUTO) 5.5 K/uL (3.6-10.2)
[2020-08-19 06:31] LABS: ALANINE AMINOTRANSFERASE 56 U/L (16-63); ALKALINE PHOSPHATASE 57 U/L (50-136); ASPARTATE AMINOTRANSFERASE 83 U/L (15-37); BILIRUBIN,TOTAL 0.4 mg/dL (0.2-1.0); CARBON DIOXIDE 24 mmol/L (21-32); CHLORIDE 112 mmol/L (98-107); CREATININE 1.4 mg/dL (0.6-1.3); GLUCOSE 114 mg/dL (74-106); MAGNESIUM 2.3 mg/dL (1.8-2.4); POTASSIUM 4.2 mmol/L (3.5-5.1); UREA NITROGEN, BLOOD 40 mg/dL (7-18)
[2020-08-19 06:57] LABS: CREATINE KINASE, TOTAL 856 U/L (39-308)
[2020-08-19] MEDS: BOOST PLUS 237 ML LIQUID (VERY VANILLA) PO SCH ×2 (08:17→17:00)
[2020-08-19] MEDS: CALCIUM CARB/VITAMIN D 500MG-200UNITS TABLET PO SCH (08:17)
[2020-08-19] MEDS ORDERED: ENOXAPARIN SODIUM 30 MG/0.3 ML DISP.SYRIN SUBCUT SCH (09:00)
[2020-08-19] MEDS ORDERED: [UNRECOGNIZED DRUG - OTHER] PO SCH (09:00)
--- NOTE | 2020-08-19 10:19 | NUR ---
IMAGES ARE NOT TRANFERING OVER TO [employer] THEREFORE, THE RADIOLOGISTCAN NOT READ IT. LENNIE IN S.O. WORKING ON THIS PROBLEM NOW, HOPEFULLY THIS WILL BE RESOLVED BLANCA
[2020-08-19 10:34] VITALS: BP 149/56
[2020-08-19 14:11] VITALS: BP 107/50
[2020-08-19] MEDS: LORAZEPAM 1 MG TABLET PO PRN (14:27)
[2020-08-19] MEDS: OLANZAPINE ZYDIS 5 MG TAB.RAPDIS PO PRN (14:27)
--- NOTE | 2020-08-19 14:30 | NUR ---
Patient got very agitated. Biting and hitting sitter and staff, can't be redirected. Gave ativan and xyprexa PO PRN as ordered. Will monitor. On 1:1 sitter
[2020-08-19 14:35] VITALS: BP 147/66
[2020-08-19 15:47] LABS: *CREATININE,URINE 126.9 mg/dL (30-125); *URINE TOTAL PROTEIN RANDOM 105.8 mg/dL (<150/24HR)
[2020-08-19 15:51] LABS: *BILIRUBIN,URIN 1+ (NEGATIVE); *BLOOD, URINE 3+ (NEGATIVE); *CLARITY,URINE CLOUDY (CLEAR); *COLOR,URINE Brown (YELLOW); *KETONES,URINE TRACE (NEGATIVE); LEUKOCYTE ESTERASE ,URINE 1+ (NEGATIVE); NITRITE, URINE NEGATIVE (NEGATIVE); UGLUCOSE NEGATIVE (NEGATIVE)
[2020-08-19] MEDS: CEFTRIAXONE 1 G in IV DEXTROSE 5% 50 ML IV SCH (17:40)
--- NOTE | 2020-08-19 17:53 | NUR ---
Bleeding in the urine and nostrils noted, MD informed. ordered to hold Lovenox
[2020-08-19 18:14] LABS: RBC,URINE 20-50 /HPF (0-3)
[2020-08-19 18:15] LABS: BACTERIA,URINE FEW /HPF (NONE SEEN); SQUAMOUS EPITHELIAL CELL,UR FEW /HPF (NONE SEEN)
--- NOTE | 2020-08-19 19:30 | NUR ---
Patient in bed. Alert to self. 1:1 at bedside. Patient does not seem to be in any acute distress at this time. Will continue to monitor.
[2020-08-19 19:43] VITALS: BP 130/64
[2020-08-20] VITALS: BP 148/67
--- NOTE | 2020-08-20 01:37 | NUR ---
Pt given Trazodone to front office help in sleep. Patient was sat to 90 degrees when medication was given and was able to tolerate medication well.
[2020-08-20 04:00] VITALS: BP 132/60
--- NOTE | 2020-08-20 06:04 | NUR ---
Patient slept intermittently throughout the night. Sitter is at bedside. No s/s of respiratory distress, pain or any discomfort at this time. Safety and comfort provided. Will endorse to day shift.
[2020-08-20 08:10] LABS: BASOPHILS % (AUTO) 0.8 % (0.0-2.0); CARBON DIOXIDE 24 mmol/L (21-32); CHLORIDE 112 mmol/L (98-107); CREATINE KINASE, TOTAL 347 U/L (39-308); CREATININE 1.4 mg/dL (0.6-1.3); EOSINOPHILS # (AUTO) 0.2 K/uL (0.0-0.7); EOSINOPHILS % (AUTO) 2.6 % (0.0-7.0); GLUCOSE 103 mg/dL (74-106); HEMATOCRIT 32.7 % (36.7-47.1); HEMOGLOBIN 11.1 g/dL (12.5-16.3); LYMPHOCYTES # (AUTO) 1.7 K/uL (20.0-40.0); LYMPHOCYTES % (AUTO) 29.2 % (20.5-51.5); MAGNESIUM 1.8 mg/dL (1.8-2.4); MEAN CORPUSCULAR HEMOGLOBIN 31.9 uug (23.8-33.4); MEAN CORPUSCULAR HGB CONC 34 g/dL (32.5-36.3); MEAN CORPUSCULAR VOLUME 93.7 fL (73.0-96.2); MONOCYTES # (AUTO) 0.9 K/uL (2.0-10.0); NEUTROPHILS % (AUTO) 52.4 % (38.5-71.5); PHOSPHOROUS 2.3 mg/dL (2.5-4.9); PLATELET COUNT (AUTO) 154 K/uL (152-348); POTASSIUM 3.8 mmol/L (3.5-5.1); RED BLOOD CELL COUNT(AUTO) 3.49 MIL/uL (4.06-5.63); UREA NITROGEN, BLOOD 29 mg/dL (7-18); WHITE BLOOD COUNT (AUTO) 5.8 K/uL (3.6-10.2)
[2020-08-20 08:40] VITALS: BP 37/57
[2020-08-20] MEDS: CALCIUM CARB/VITAMIN D 500MG-200UNITS TABLET PO SCH (09:10)
[2020-08-20] MEDS: BOOST PLUS 237 ML LIQUID (VERY VANILLA) PO SCH ×2 (09:19→16:52)
[2020-08-20] MEDS: IV NS 1000 ML 1,000 ML IV PRN ×2 (09:25→23:35)
[2020-08-20 09:40] VITALS: BP 137/57
[2020-08-20] MEDS ORDERED: NEUTRA PHOS PACKET PO ONE (13:45)
[2020-08-20 16:00] VITALS: BP 138/88
[2020-08-20] MEDS: OLANZAPINE ZYDIS 5 MG TAB.RAPDIS PO PRN (17:21)
[2020-08-20] MEDS: CEFTRIAXONE 1 G in IV DEXTROSE 5% 50 ML IV SCH (17:22)
--- NOTE | 2020-08-20 19:16 | NUR ---
HANDOFF WITH AILEEN CROSS. CLINTON ROSADO RN
[2020-08-20 20:00] VITALS: BP 134/57
--- NOTE | 2020-08-20 20:00 | NUR ---
AWAKE,CONFUSED,QUIET, INCONTINENT OF URINE,SITTER AT BEDSIDE RESTING COMFORTABLY
--- NOTE | 2020-08-21 00:30 | NUR ---
UNABLE TO SLEEP,ATIVAN 1 MG GIVEN, SLEPT AFTER AN HOUR.
[2020-08-21 05:00] VITALS: BP 119/57
--- NOTE | 2020-08-21 05:35 | NUR ---
ASLEEP INTERMITTENTLY,REPOSITIONED FOR COMFORT TURNED Q 2 HOUR,CHANGED FREQUENTLY . AFEBRILE.IN NO ACUTE DISTRESS.
[2020-08-21] MEDS: BOOST PLUS 237 ML LIQUID (VERY VANILLA) PO SCH ×2 (09:00→17:00)
--- NOTE | 2020-08-21 09:00 | NUR ---
REFUSED BREAKFAST. SCRATCHING, PINCHING & AGGRESSIVE WITH STAFF. INC. URINE. BED BATH & LINEN CHANGED. SITTER AT BEDSIDE.
[2020-08-21] MEDS: CALCIUM CARB/VITAMIN D 500MG-200UNITS TABLET PO SCH (09:08)
[2020-08-21] MEDS: LORAZEPAM 1 MG TABLET PO PRN ×2 (09:08)
[2020-08-21 11:12] VITALS: BP 153/61
[2020-08-21] MEDS: CEFTRIAXONE 1 G in IV DEXTROSE 5% 50 ML IV SCH (13:44)
--- NOTE | 2020-08-21 14:00 | NUR ---
CLEARED FOR DC TO MHU TODAY. BED NOT AVAILABLE. CONFUSED & EATING MINIMAL AMOUNTS. PREPARED FOR DISCHARGE TO MHU. NURSE AND BED NOT AVAILABLE.
[2020-08-21 14:03] LABS: EOSINOPHILS % (MANUAL) 2 % (0-8); LYMPHOCYTES % (MANUAL) 33 % (20-40); MONOCYTES % (MANUAL) 10 % (2-10); NEUTROPHILS % (MANUAL) 55 % (42-75)
[2020-08-21] MEDS ORDERED: CIPR500T5 PO (14:58)
[2020-08-21] MEDS ORDERED: CALC-555 PO (14:58)
[2020-08-21] MEDS ORDERED: OLAN5TAB6 PO (14:58)
[2020-08-21] MEDS ORDERED: TRAZ-252 PO (14:58)
[2020-08-21] MEDS ORDERED: TAMS-3 PO (14:58)
[2020-08-21 15:43] VITALS: BP 126/83
--- NOTE | 2020-08-21 19:53 | NUR ---
READY TO TRANSFER TO MHU. STAFF NOT AVAILABLE AT THIS TIME. SITTING UP IN BEVERLEY CHAIR.
[2020-08-21 20:30] VITALS: BP 106/67
[2020-08-21] MEDS ORDERED: HALOPERIDOL 0.5 MG TABLET PO SCH ×2 (20:30→21:00)
[2020-08-21] MEDS ORDERED: TAMSULOSIN HCL 0.4 MG CAP.SR.24H PO SCH (21:00)
--- NOTE | 2020-08-21 22:14 | NUR ---
Patient up in neena-chair.Awake confused and calm.No s/s of distress noted.On RA.saturating well at 96%.IV on Right UA 20g patent and intact.Still noted with bruises and multiple scabs on rocío ext.Some healing skin tear. seen and examined patient with new order given noted and carried out.Due meds given and Haldol 0.5 mg as ordered given.No a/r noted.Discharged patient to MHU.All belongings given and report given to MHU nurse.
[2020-08-22 15:06] LABS: A/G RATIO 0.9 (0.7-1.7); ALBUMIN 2.6 g/dL (2.9-4.4); ALPHA-1-GLOBULIN 0.3 g/dL (0.0-0.4); ALPHA-2-GLOBULIN 0.8 g/dL (0.4-1.0); BETA GLOBULIN 0.7 g/dL (0.7-1.3); GAMMA GLOBULIN 1.1 g/dL (0.4-1.8); M-SPIKE Not Observed g/dL (Not Observed)
== END 2020-08-21 22:04 | DRG 189 ==
LOC: MEDSURG3 02:50
PROVIDERS: ADMIT Internal Medicine; ATTEND Nurse Practitioner Acute Care
DX: J96.01 Acute respiratory failure with hypoxia (principal); N17.0 Acute kidney failure with tubular necrosis; G93.41 Metabolic encephalopathy; E87.2 Acidosis; M62.82 Rhabdomyolysis; R64 Cachexia; N39.0 Urinary tract infection, site not specified; F03.91 Unspecified dementia, unspecified severity, with behavioral disturbance; Z68.1 Body mass index [BMI] 19.9 or less, adult; D64.9 Anemia, unspecified; I25.10 Atherosclerotic heart disease of native coronary artery without angina pectoris; I50.9 Heart failure, unspecified; R62.7 Adult failure to thrive; N18.9 Chronic kidney disease, unspecified; N40.1 Benign prostatic hyperplasia with lower urinary tract symptoms; R13.10 Dysphagia, unspecified; Z66 Do not resuscitate; F41.9 Anxiety disorder, unspecified; F32.9 Major depressive disorder, single episode, unspecified; Z91.81 History of falling; F29 Unspecified psychosis not due to a substance or known physiological condition
CPT/HCPCS: 36415; 70030-TC; 71045; 76770; 83605; 83735; 83970; 84100; 84153; 84155; 84156; 84165; 84300; 85025; 86140; 87070; 87086; G0378; J0456; J0696; J1650; J7060

== ENCOUNTER 2020-08-29 17:23 | Inpatient (IN) | payer MEDICARE, BC ==
[~2020-08-29 17:23] MED LIST changes: +ACET-2154 PO; +ACET650S24 RC; +ALBU2.5V7 IH; +CALC-555 PO; +CIPR500T5 PO; +CLON0.1T14 PO; +GUAI237L83 PO; +LACT-15 PO; +LORA-259 PO; +MAG-55 PO; +MAGN400O6 PO; +OLAN2.5T3 PO; +OLAN5TAB6 PO; -QUET25TA PO; +TAMS-3 PO; +TRAZ-252 PO; +[UNRECOGNIZED DRUG - CODE] PO
[2020-08-29 18:35] VITALS: BP 120/60
[2020-08-29] MEDS ORDERED: ACETAMINOPHEN 325 MG TABLET PO PRN (18:45)
[2020-08-29] MEDS ORDERED: HYDROCODONE/APAP 5-325MG TABLET PO PRN (18:45)
[2020-08-29] MEDS ORDERED: CLONIDINE HCL 0.1 MG TABLET PO PRN (18:45)
[2020-08-29] MEDS ORDERED: TRAZODONE 50 MG TABLET PO PRN (18:45)
[2020-08-29] MEDS ORDERED: ALBUTEROL SULFATE 2.5 MG/3 ML NEBU NEB PRN (18:45)
[2020-08-29] MEDS ORDERED: OLANZAPINE ZYDIS 5 MG TAB.RAPDIS PO PRN (18:45)
[2020-08-29] MEDS ORDERED: ONDANSETRON 4 MG/2 ML VIAL IV PRN (18:45)
[2020-08-29] MEDS ORDERED: MAG HYDROX/AL HYDROX/SIMETH 30 ML LIQUID UDC PO PRN (18:45)
[2020-08-29] MEDS ORDERED: LORAZEPAM 1 MG TABLET PO PRN (18:45)
[2020-08-29 20:00] VITALS: BP 166/92
--- NOTE | 2020-08-29 20:05 | NUR ---
Received pt sitting on a Gerichair. No apparent distress noted. Blood pressure is 166/92, Clonidine 0.1mg was given. Will reassess. PIV on RAC20 is intact. Safety measures in place. Call light within reach. Will continue with the plan of care.
[2020-08-29] MEDS: TAMSULOSIN HCL 0.4 MG CAP.SR.24H PO SCH (20:21)
--- NOTE | 2020-08-29 21:30 | NUR ---
Pt's blood pressure is 135/68
[2020-08-30] MEDS: IV 1/2NS 1000 ML 1,000 ML IV PRN ×2 (03:09→23:40)
[2020-08-30 04:00] VITALS: BP 102/59
--- NOTE | 2020-08-30 06:16 | NUR ---
Pt slept through the night. No apparent distress noted at this time. V/S stable on room air. Comfort care and needs attended. Fall and aspiration precaution maintained. Safety measures in place. Bed low and locked in position. Side rails x2 up. Call light within reach. Will endorse to oncoming nurse accordingly.
[2020-08-30] MEDS: PANTOPRAZOLE SODIUM 40 MG TABLET.DR PO SCH (06:24)
[2020-08-30 06:41] LABS: BASOPHILS # (AUTO) 0.1 K/uL (0.0-8.0); BASOPHILS % (AUTO) 1.1 % (0.0-2.0); EOSINOPHILS # (AUTO) 0.4 K/uL (0.0-0.7); EOSINOPHILS % (AUTO) 4.9 % (0.0-7.0); HEMATOCRIT 35.8 % (36.7-47.1); HEMOGLOBIN 11.8 g/dL (12.5-16.3); LYMPHOCYTES # (AUTO) 1.6 K/uL (20.0-40.0); LYMPHOCYTES % (AUTO) 18.6 % (20.5-51.5); MEAN CORPUSCULAR HEMOGLOBIN 32.9 uug (23.8-33.4); MEAN CORPUSCULAR HGB CONC 33 g/dL (32.5-36.3); MEAN CORPUSCULAR VOLUME 99.9 fL (73.0-96.2); MONOCYTES # (AUTO) 0.9 K/uL (2.0-10.0); MONOCYTES % (AUTO) 10.2 % (0.0-11.0); NEUTROPHILS # (AUTO) 5.5 K/uL (1.8-8.9); NEUTROPHILS % (AUTO) 65.2 % (38.5-71.5); PLATELET COUNT (AUTO) 213 K/uL (152-348); RED BLOOD CELL COUNT(AUTO) 3.59 MIL/uL (4.06-5.63); WHITE BLOOD COUNT (AUTO) 8.5 K/uL (3.6-10.2)
[2020-08-30 06:57] LABS: THYROID STIMULATING HORMONE 4.389 mIU/mL (0.358-3.740)
[2020-08-30 07:07] LABS: ALANINE AMINOTRANSFERASE 37 U/L (16-63); ALKALINE PHOSPHATASE 70 U/L (50-136); ASPARTATE AMINOTRANSFERASE 35 U/L (15-37); BILIRUBIN,TOTAL 0.4 mg/dL (0.2-1.0); CARBON DIOXIDE 25 mmol/L (21-32); CHLORIDE 115 mmol/L (98-107); CHOLESTEROL 147 mg/dL (<200); CREATININE 2.1 mg/dL (0.6-1.3); GLUCOSE 107 mg/dL (74-106); HDL CHOLESTEROL 34 mg/dL (40-60); PHOSPHOROUS 3.9 mg/dL (2.5-4.9); POTASSIUM 4.8 mmol/L (3.5-5.1); TOTAL PROTEIN, SERUM 7.1 g/dL (6.4-8.2); TRIGLYCERIDES 89 MG/DL (30-150); UREA NITROGEN, BLOOD 79 mg/dL (7-18)
--- NOTE | 2020-08-30 07:30 | NUR ---
Received patient resting in bed awake but confused. No sign of distress noted at this time, patient is saturating at 97%. Safety precautions in place with bed in the lowest position, locked with alarm activated. Will continue to monitor.
[2020-08-30 08:38] LABS: IRON, SERUM 62 ug/dL (50-175)
[2020-08-30] MEDS: CALCIUM CARB/VITAMIN D 500MG-200UNITS TABLET PO SCH (08:44)
[2020-08-30] MEDS: OLANZAPINE 2.5 MG TABLET PO SCH ×3 (08:44→17:37)
[2020-08-30] MEDS: BOOST PLUS 237 ML LIQUID (VERY VANILLA) PO SCH ×2 (08:44→17:37)
[2020-08-30] MEDS ORDERED: [UNRECOGNIZED DRUG - OTHER] PO SCH (09:00)
--- NOTE | 2020-08-30 09:55 | NUR ---
SUDHAKAR GPS Transfer Note and Discharge Plan: Patient was discharged from MHU and transferred to Medical Floor due to high BUN levels. Patient's psychiatric hold is discontinued. Upon discharge, [facility] to [facility], [address] [address] ([phone]) via ambulance. SUDHAKAR spoke with Sybil workforce management coordinator at the facility who states they are ready to accept the patient once he is ready. Patient will follow-up at the facility with Dr. Casas Hygiene Coordinator and Dr. Duran Psychiatrist. Patient is alert and oriented times 2, denies suicidal or homicidal ideation, and is aware and agreeable with discharge plans. Patient presents with withdrawn mood and congruent affect. Patient is unable to plan for self-care at this time, however, is willing to accept care provided at the facility. Patient's , Sabine ([phone]) is made aware of the patent's discharge and transfer.
[2020-08-30 11:21] VITALS: BP 114/89
--- NOTE | 2020-08-30 13:42 | NUR ---
Patient IV is leaving, found the patient's gown and pillow where arm was being rested on wet. Upon assessment the IV line was leaking. Will attempt reinsertion.
[2020-08-30 16:00] VITALS: BP 164/68
--- NOTE | 2020-08-30 18:20 | NUR ---
Right upper arm midline added 18 gauge. Will resume fluids as ordered. Will continue to monitor
[2020-08-30 20:08] VITALS: BP 164/63
[2020-08-30] MEDS: TAMSULOSIN HCL 0.4 MG CAP.SR.24H PO SCH (22:03)
[2020-08-31 04:00] VITALS: BP 116/48
[2020-08-31 04:10] VITALS: BP 116/48
[2020-08-31 06:41] LABS: BASOPHILS # (AUTO) 0.1 K/uL (0.0-8.0); BASOPHILS % (AUTO) 0.8 % (0.0-2.0); EOSINOPHILS # (AUTO) 0.4 K/uL (0.0-0.7); EOSINOPHILS % (AUTO) 5.2 % (0.0-7.0); HEMATOCRIT 35.8 % (36.7-47.1); HEMOGLOBIN 11.9 g/dL (12.5-16.3); LYMPHOCYTES # (AUTO) 1.4 K/uL (20.0-40.0); LYMPHOCYTES % (AUTO) 17.1 % (20.5-51.5); MEAN CORPUSCULAR HEMOGLOBIN 32.1 uug (23.8-33.4); MEAN CORPUSCULAR HGB CONC 33 g/dL (32.5-36.3); MEAN CORPUSCULAR VOLUME 97.1 fL (73.0-96.2); MONOCYTES # (AUTO) 0.7 K/uL (2.0-10.0); MONOCYTES % (AUTO) 8.8 % (0.0-11.0); NEUTROPHILS # (AUTO) 5.7 K/uL (1.8-8.9); NEUTROPHILS % (AUTO) 68.1 % (38.5-71.5); PLATELET COUNT (AUTO) 198 K/uL (152-348); RED BLOOD CELL COUNT(AUTO) 3.69 MIL/uL (4.06-5.63); WHITE BLOOD COUNT (AUTO) 8.4 K/uL (3.6-10.2)
[2020-08-31 06:48] LABS: CARBON DIOXIDE 24 mmol/L (21-32); CHLORIDE 114 mmol/L (98-107); CREATININE 1.8 mg/dL (0.6-1.3); GLUCOSE 96 mg/dL (74-106); MAGNESIUM 2.6 mg/dL (1.8-2.4); PHOSPHOROUS 3.1 mg/dL (2.5-4.9); POTASSIUM 4.1 mmol/L (3.5-5.1); UREA NITROGEN, BLOOD 63 mg/dL (7-18)
[2020-08-31] MEDS: PANTOPRAZOLE SODIUM 40 MG TABLET.DR PO SCH (06:58)
--- NOTE | 2020-08-31 07:10 | NUR ---
Handoff with AILEEN Gonzalez. Phan Foley RN
--- NOTE | 2020-08-31 07:30 | NUR ---
Received patient resting in bed awake but confused. No sign of distress noted at this time, patient is saturating at 97%. IV is running 1/2 NS in right upper arm midline 18 gauge. Patient can be a little hostile and combative at time. Safety precautions in place with bed in the lowest position, locked with alarm activated. Will continue to monitor.
[2020-08-31] MEDS: BOOST PLUS 237 ML LIQUID (VERY VANILLA) PO SCH ×2 (09:27→17:43)
[2020-08-31] MEDS: OLANZAPINE 2.5 MG TABLET PO SCH ×3 (09:28→17:44)
[2020-08-31] MEDS: CALCIUM CARB/VITAMIN D 500MG-200UNITS TABLET PO SCH (09:28)
[2020-08-31 11:30] VITALS: BP 123/42
--- NOTE | 2020-08-31 12:18 | NUR ---
Patient is dozing intermittently in bed, checked oxygen saturation. Patient is saturating at 100% on room air. Will continue to monitor.
[2020-08-31 16:00] VITALS: BP 129/66
[2020-08-31] MEDS: IV 1/2NS 1000 ML 1,000 ML IV PRN (19:47)
[2020-08-31] MEDS: TAMSULOSIN HCL 0.4 MG CAP.SR.24H PO SCH (20:01)
--- NOTE | 2020-08-31 20:08 | NUR ---
Received pt in bed, awake. Alert to self. Given scheduled meds and pt tolerated well. On RA with no s/s of respiratory distress or any discomfort. Will continue to monitor
[2020-08-31 20:12] VITALS: BP 118/66
[2020-09-01 04:40] VITALS: BP 123/65
--- NOTE | 2020-09-01 06:15 | NUR ---
Pt slept throughout the night. Pt was checked on periodically, no s/s of any acute distress. On RA with no s/s of respiratory distress at this time. Safety and comfort provided. Will endorse to day shift.
[2020-09-01] MEDS: PANTOPRAZOLE SODIUM 40 MG TABLET.DR PO SCH (06:19)
[2020-09-01 06:43] LABS: BASOPHILS # (AUTO) 0.1 K/uL (0.0-8.0); EOSINOPHILS # (AUTO) 0.4 K/uL (0.0-0.7); EOSINOPHILS % (AUTO) 5.5 % (0.0-7.0); HEMATOCRIT 34.4 % (36.7-47.1); HEMOGLOBIN 11.6 g/dL (12.5-16.3); LYMPHOCYTES # (AUTO) 1.8 K/uL (20.0-40.0); LYMPHOCYTES % (AUTO) 26.2 % (20.5-51.5); MEAN CORPUSCULAR HEMOGLOBIN 32.2 uug (23.8-33.4); MEAN CORPUSCULAR HGB CONC 34 g/dL (32.5-36.3); MEAN CORPUSCULAR VOLUME 95.5 fL (73.0-96.2); MONOCYTES # (AUTO) 0.7 K/uL (2.0-10.0); MONOCYTES % (AUTO) 10.6 % (0.0-11.0); NEUTROPHILS % (AUTO) 56.7 % (38.5-71.5); PLATELET COUNT (AUTO) 194 K/uL (152-348)
[2020-09-01 06:55] LABS: CARBON DIOXIDE 22 mmol/L (21-32); CHLORIDE 114 mmol/L (98-107); CREATININE 1.5 mg/dL (0.6-1.3); GLUCOSE 87 mg/dL (74-106); MAGNESIUM 2.5 mg/dL (1.8-2.4); PHOSPHOROUS 2.7 mg/dL (2.5-4.9); POTASSIUM 4.1 mmol/L (3.5-5.1); UREA NITROGEN, BLOOD 57 mg/dL (7-18)
[2020-09-01 08:10] VITALS: BP 134/83
[2020-09-01] MEDS: BOOST PLUS 237 ML LIQUID (VERY VANILLA) PO SCH (09:10)
[2020-09-01] MEDS: CALCIUM CARB/VITAMIN D 500MG-200UNITS TABLET PO SCH (09:10)
[2020-09-01] MEDS: OLANZAPINE 2.5 MG TABLET PO SCH ×3 (09:13→17:31)
[2020-09-01] MEDS: ENSURE ENLIVE (VAN) 240 ML LIQUID PO SCH ×2 (13:58→17:31)
--- NOTE | 2020-09-01 14:44 | NUR ---
Pt received this morning, no acute distress, fidgety, and restless at times. Pt compliant with routine medications taken them crushed with applesauce or chocolate pudding. Poor appetite noted. Pt repositioned for comfort. Call light within reach and Pt checked on frequently. Will continue to monitor for safety.
[2020-09-01 15:28] VITALS: BP 122/57
[2020-09-01] MEDS: TAMSULOSIN HCL 0.4 MG CAP.SR.24H PO SCH (20:23)
[2020-09-01 20:33] VITALS: BP 140/54
--- NOTE | 2020-09-01 21:00 | NUR ---
AWAKE,NON VERBAL .STARINLY THE RODRIGUEZ.DESYRYL GIVEN FOR SLEEP AND NORCO FOR PAIN.PATIENT MOANS WHEN TURN.REPOSITIONED FOR COMFORT.
--- NOTE | 2020-09-01 23:01 | NUR ---
RECEIVED PT IN NO ACUTE DISTRESS. SAFETY AND COMFORT DISTRESS. WILL CONTINUE TO MONITOR.
[2020-09-02 04:22] VITALS: BP 127/67
[2020-09-02 06:05] LABS: BASOPHILS # (AUTO) 0.1 K/uL (0.0-8.0); BASOPHILS % (AUTO) 0.8 % (0.0-2.0); EOSINOPHILS # (AUTO) 0.4 K/uL (0.0-0.7); EOSINOPHILS % (AUTO) 5.5 % (0.0-7.0); HEMATOCRIT 34.6 % (36.7-47.1); HEMOGLOBIN 11.8 g/dL (12.5-16.3); LYMPHOCYTES # (AUTO) 1.8 K/uL (20.0-40.0); LYMPHOCYTES % (AUTO) 26.9 % (20.5-51.5); MEAN CORPUSCULAR HEMOGLOBIN 32.3 uug (23.8-33.4); MEAN CORPUSCULAR HGB CONC 34 g/dL (32.5-36.3); MEAN CORPUSCULAR VOLUME 94.4 fL (73.0-96.2); MONOCYTES # (AUTO) 0.7 K/uL (2.0-10.0); MONOCYTES % (AUTO) 11.1 % (0.0-11.0); NEUTROPHILS # (AUTO) 3.6 K/uL (1.8-8.9); NEUTROPHILS % (AUTO) 55.7 % (38.5-71.5); PLATELET COUNT (AUTO) 184 K/uL (152-348); RED BLOOD CELL COUNT(AUTO) 3.66 MIL/uL (4.06-5.63); WHITE BLOOD COUNT (AUTO) 6.5 K/uL (3.6-10.2)
--- NOTE | 2020-09-02 06:08 | NUR ---
PT SLEPT INTERMITTENTLY. PRESCRIBED MEDICATION GIVEN AND PT TOLERATED IT WELL. PT TURNED AND REPOSITIONED. PT MUMBLING ON HIS OWN. SAFETY AND COMFORT PROVIDED.WILL ENDORSE TO INCOMING NURSE FOR CONTINUITY OF CARE
[2020-09-02] MEDS: PANTOPRAZOLE SODIUM 40 MG TABLET.DR PO SCH (06:12)
[2020-09-02 06:25] LABS: CARBON DIOXIDE 24 mmol/L (21-32); CHLORIDE 117 mmol/L (98-107); CREATININE 1.5 mg/dL (0.6-1.3); GLUCOSE 95 mg/dL (74-106); MAGNESIUM 2.4 mg/dL (1.8-2.4); PHOSPHOROUS 2.8 mg/dL (2.5-4.9); UREA NITROGEN, BLOOD 48 mg/dL (7-18)
[2020-09-02 07:30] VITALS: BP 118/53
[2020-09-02] MEDS: ENSURE ENLIVE (VAN) 240 ML LIQUID PO SCH ×3 (08:27→16:19)
[2020-09-02] MEDS: CALCIUM CARB/VITAMIN D 500MG-200UNITS TABLET PO SCH (08:27)
[2020-09-02] MEDS: OLANZAPINE 2.5 MG TABLET PO SCH ×3 (08:27→16:20)
[2020-09-02] MEDS ORDERED: IV D5W 1000ML 1,000 ML IV PRN (12:30)
[2020-09-02 15:31] VITALS: BP 106/50
--- NOTE | 2020-09-02 17:35 | NUR ---
Received PT in bed, awake AOX1. PT was slightly irritable. No signs of acute distress or shortness of breath. Nurse did hourly rounds. PT plan to be D/C 09/03 in the morning to [facility] per Isreal (MS Director). When in bed, PT was provided with safety measure, call light within reach, HOB elevated, personal items within reach and bed in low position.
--- NOTE | 2020-09-02 19:00 | NUR ---
Pt in bed, sleeping, easy to arouse. No s/s of acute distress or pain noted at this time. V/S stable on room air. Safety measures in place. Call light within reach. Will continue with the plan of care
[2020-09-02 20:00] VITALS: BP 134/62
[2020-09-02] MEDS: TAMSULOSIN HCL 0.4 MG CAP.SR.24H PO SCH (20:54)
[2020-09-03 04:00] VITALS: BP 128/57
[2020-09-03 05:49] LABS: BASOPHILS # (AUTO) 0.1 K/uL (0.0-8.0); EOSINOPHILS # (AUTO) 0.3 K/uL (0.0-0.7); EOSINOPHILS % (AUTO) 4.8 % (0.0-7.0); HEMATOCRIT 35.2 % (36.7-47.1); HEMOGLOBIN 11.7 g/dL (12.5-16.3); LYMPHOCYTES # (AUTO) 1.7 K/uL (20.0-40.0); LYMPHOCYTES % (AUTO) 28.3 % (20.5-51.5); MEAN CORPUSCULAR HEMOGLOBIN 31.3 uug (23.8-33.4); MEAN CORPUSCULAR HGB CONC 33 g/dL (32.5-36.3); MONOCYTES # (AUTO) 0.7 K/uL (2.0-10.0); MONOCYTES % (AUTO) 11.8 % (0.0-11.0); NEUTROPHILS # (AUTO) 3.3 K/uL (1.8-8.9); NEUTROPHILS % (AUTO) 54.1 % (38.5-71.5); PLATELET COUNT (AUTO) 170 K/uL (152-348); RED BLOOD CELL COUNT(AUTO) 3.74 MIL/uL (4.06-5.63); WHITE BLOOD COUNT (AUTO) 6.1 K/uL (3.6-10.2)
[2020-09-03 06:04] LABS: CARBON DIOXIDE 24 mmol/L (21-32); CHLORIDE 113 mmol/L (98-107); CREATININE 1.5 mg/dL (0.6-1.3); GLUCOSE 125 mg/dL (74-106); MAGNESIUM 2.3 mg/dL (1.8-2.4); PHOSPHOROUS 2.9 mg/dL (2.5-4.9); POTASSIUM 3.8 mmol/L (3.5-5.1); UREA NITROGEN, BLOOD 49 mg/dL (7-18)
[2020-09-03] MEDS: PANTOPRAZOLE SODIUM 40 MG TABLET.DR PO SCH (06:32)
--- NOTE | 2020-09-03 06:39 | NUR ---
Pt slept through the night. No s/s of acute distress or pain noted. V/S stable on room air. Comfort care and needs attended. Fall and aspiration precaution maintained. Safety measures in place. Call light within reach. Will endorse to oncoming nurse accordingly.
[2020-09-03] MEDS: OLANZAPINE 2.5 MG TABLET PO SCH ×2 (08:41→12:53)
[2020-09-03] MEDS: CALCIUM CARB/VITAMIN D 500MG-200UNITS TABLET PO SCH (08:41)
[2020-09-03] MEDS: ENSURE ENLIVE (VAN) 240 ML LIQUID PO SCH ×2 (08:41→12:53)
[2020-09-03 11:35] VITALS: BP 147/63
[2020-09-03 13:15] VITALS: BP 124/63
--- NOTE | 2020-09-03 14:40 | NUR ---
Pt DC stable via ambulance on stretcher confused on RA with no SOB or distress noted at this time. Removed ADDY midline, no s/s of bleeding, removed wrist band. DC instructions and forms given to ambulance personnel. Report called to Roseanne from [facility]. Belongings list signed.
== END 2020-09-03 14:30 | DRG 682 ==
LOC: MEDSURG3 17:23
PROVIDERS: ADMIT Nurse Practitioner Acute Care; ATTEND Nurse Practitioner Acute Care
PROC: 05HY33Z Insertion of Infusion Device into Upper Vein, Percutaneous Approach (ICD-10-PCS; principal; 2020-08-31)
DX: N17.0 Acute kidney failure with tubular necrosis (principal); G93.41 Metabolic encephalopathy; F03.91 Unspecified dementia, unspecified severity, with behavioral disturbance; E87.0 Hyperosmolality and hypernatremia; N39.0 Urinary tract infection, site not specified; I13.0 Hypertensive heart and chronic kidney disease with heart failure and stage 1 through stage 4 chronic kidney disease, or unspecified chronic kidney disease; Z66 Do not resuscitate; E86.0 Dehydration; R62.7 Adult failure to thrive; N40.0 Benign prostatic hyperplasia without lower urinary tract symptoms; Z87.440 Personal history of urinary (tract) infections; R13.10 Dysphagia, unspecified; I50.9 Heart failure, unspecified; N18.9 Chronic kidney disease, unspecified; F22 Delusional disorders; Z91.81 History of falling; Z87.820 Personal history of traumatic brain injury; N28.1 Cyst of kidney, acquired
CPT/HCPCS: 36415; 70030-TC; 71045; 82652; 83550; 83735; 84100; 84153; 84443; 85025; 93005; A4663; G0378; J3490; J7042